=== PATIENT | female | born 1975 | race Caucasian/White ===

== ENCOUNTER 2017-06-22 23:24 | Observation (INO) ==
[2017-06-22 23:53] LABS: Basophils # 0.1 K/mcL (0.0-0.2); Basophils % 0.8 %; Eosinophils # 0.1 K/mcL (0.0-0.6); Eosinophils % 2.2 %; Hematocrit 42.3 % (35.3-44.9); Hemoglobin 14.8 g/dL (11.5-15.4); Immature Granulocytes % 0.8 % (0-4); Lymphocytes # 1.8 K/mcL (0.6-4.6); Lymphocytes % 29.5 %; Mean Corpuscular Hemoglobin 32.4 pg (28.0-33.3); Mean Corpuscular Volume 92.6 fL (83.0-100.0); Mean Platelet Volume 9.1 fL (9.4-12.4); Monocytes # 0.6 K/mcL (0.0-1.3); Monocytes % 9.3 %; Neutrophils # 3.5 K/mcL (1.6-8.9); Platelet Count 247 K/mcL (140-400); Red Blood Count 4.57 M/mcL (3.82-4.97); Red Cell Distribution Width 12.7 % (11.5-14.5); Segmented Neutrophils % 57.4 %
[2017-06-22 23:57] LABS: INR 1.1; Prothrombin Time 11.7 Seconds (9.4-12.1)
[2017-06-23] LABS: Activated Partial Thrombo Time 35.6 Seconds (26.0-36.0)
[2017-06-23 00:07] LABS: Albumin 3.6 g/dL (3.5-5.0); Albumin/Globulin Ratio 1.2 (1.1-2.2); Alkaline Phosphatase 60 Units/L (38-126); Amylase 37 Units/L (25-125); Aspartate Amino Transferase 11 Units/L (5-34); BUN/Creatinine Ratio 21 (6-26); Bilirubin,Direct 0.1 mg/dL (0.0-0.5); Bilirubin,Indirect 0.2 mg/dL (0.0-1.2); Bilirubin,Total 0.3 mg/dL (0.2-1.2); Blood Urea Nitrogen 13 mg/dL (7-20); Calcium 9.3 mg/dL (8.6-10.8); Carbon Dioxide 21 mEq/L (19-29); Chloride 107 mEq/L (98-109); Globulin 3.1 g/dL (2.4-3.5); Glucose 93 mg/dL (70-99); Lipase 37 Units/L (8-78); Osmolality,Calculated 284 (280-300); Potassium 4.1 mEq/L (3.5-4.5); Sodium 137 mEq/L (136-145); Total Protein 6.7 g/dL (6.0-8.3); eGFR For African Americans > 60 (> 60); eGFR For Non-African Americans > 60 (> 60)
[2017-06-23 00:10] LABS: Alanine Aminotransferase < 6 Units/L (0-55)
[2017-06-23] MEDS ORDERED: 0.9 % Sodium Chloride 1,000 ML IVC ONE (00:21)
[2017-06-23] MEDS ORDERED: *HR* FentaNYL (PF) 100 MCG/2 ML VIAL IVP ONE ×2 (00:21→03:54)
[2017-06-23] MEDS ORDERED: Ondansetron 4 MG/2 ML VIAL IVP ONE (00:21)
--- NOTE | 2017-06-23 00:38 | Emergency Department Note ---
Disposition Clinical Impression: GI bleed Qualifiers: GI bleed type/associated pathology: unspecified gastrointestinal hemorrhage type Qualified Code(s): K92.2 - Gastrointestinal hemorrhage, unspecified Abdominal pain Qualifiers: Abdominal location: generalized Qualified Code(s): R10.84 - Generalized abdominal pain Disposition: Admitted As Inpatient Condition: Fair Referrals: NONE,PCP [Non-Partnered Physician] - Forms: ED Satisfaction Letter, Work/School Release Time of Disposition: 04:55 Abdominal Pain HPI - General Chief Complaint: ED Abdominal Pain Stated Complaint: Belly Pain/Vomiting Blood Time Seen by Provider: 06/22/17 23:27 Source: patient, EMS Mode of arrival: ambulatory Limitations: no limitations Nursing Notes Reviewed: Yes Vital Signs Reviewed: Yes - History of Present Illness HPI Narrative: Nontoxic-appearing 41-year-old female presents for evaluation of diffuse abdominal pain, nausea, vomiting blood, and bright red bloody stools. Symptoms began one week ago and have gradually worsened. She was recently sent reevaluated by her primary care provider for this, who started her on Prilosec after obtaining a outpatient stool sample that was positive for guaiac blood. He denies any fever, chills, constipation, diarrhea, or urinary symptoms. She denies any chest pain or shortness of breath. Pt Subjective Complaint: abdominal pain, other ("Bloody stools, vomiting blood") Onset (ago): week(s) (One week) Consistency: Worsening Location: diffuse Pain Severity: severe Pain Scale: 10 Quality: sharp Radiation: none Migration to: no migration Improves with: nothing Worsens with: eating Associated symptoms: Reports: nausea, vomiting, hematemesis, hematochezia. Denies: hematuria Treatments prior to arrival: other (Prilosec per primary care provider) - Related Data Previous Rx's Medication Instructions Recorded Dicyclomine [Bentyl] 10 mg PO TID #20 capsule 03/22/17 Ondansetron HCl [Zofran] 4 mg PO Q8HR #20 tablet 03/22/17 Nitrofurantoin (BID) [Macrobid] 100 mg PO BID #14 capsule 04/17/17 Ciprofloxacin [Cipro] 500 mg PO BID #14 tablet 05/22/17 Allergies Allergy/AdvReac Type Severity Reaction Status Date / Time acetaminophen Allergy Confusion Verified 06/22/17 23:26 [From Darvocet-N] cephalexin [From Keflex] Allergy Rash Verified 06/22/17 23:26 Penicillins Allergy Hives Verified 06/22/17 23:26 propoxyphene Allergy Confusion Verified 06/22/17 23:26 [From Darvocet-N] Sulfa (Sulfonamide Allergy Hives Verified 06/22/17 23:26 Antibiotics) All systems ED: reviewed and negative except as stated. Constitutional: Denies: fever, chills, weakness, weight change Eyes: Denies: eye pain, eye discharge, vision change ENT ED: Denies: ear pain, throat pain, dental pain, hearing loss, epistaxis, congestion, dysphagia Cardiovascular: Denies: chest pain, palpitations, dyspnea on exertion, edema, syncope Respiratory: Denies: cough, dyspnea, wheezes, hemoptysis, stridor Gastrointestinal: Reports: as per HPI, abdominal pain, nausea, vomiting, hematemesis, hematochezia. Denies: diarrhea, constipation, melena Genitourinary: Denies: dysuria, frequency, hematuria, discharge Musculoskeletal: Denies: back pain, neck pain, arthralgia, myalgia Integumentary: Denies: rash, abrasion, lesions Neurological: Denies: headache, weakness, numbness, paresthesias, confusion, abnormal gait, vertigo Psychiatric: Denies: anxiety, depression, suicidal thoughts, homicidal thoughts , auditory hallucinations, visual hallucinations Endocrine: Denies: fatigue Hematological/Lymphatic: Denies: easy bleeding, easy bruising Allergic/Immunologic: Denies: facial swelling, urticaria Abdominal Pain PMH - Past Medical History Medical history: Reports: cancer, seizures Female Surgical History: Reports: breast surgery, , cancer surgery 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 Absent: nystagmus - ENT ENT exam: mucous membranes moist - Neck Neck exam: Present: normal inspection, full ROM, trachea midline - Chest Chest inspection: Present: normal inspection, symmetric chest wall rise - Respiratory Respiratory exam: Present: normal lung sounds bilaterally. Absent: respiratory distress, wheezes, stridor, accessory muscle use, prolonged expiratory phase - Cardiovascular Cardiovascular exam: Present: regular rate, normal rhythm, normal heart sounds - Abdominal Exam Abdominal exam: Present: soft, tenderness, normal bowel sounds. Absent: distention, guarding, rigidity - Rectal Exam Garment Looper present during exam: Yes (Adeel, RN) Rectal exam: Present: normal rectal tone, heme (+) stool. Absent: fecal impaction, hemorrhoids, mass, tenderness - Extremities Exam Extremities exam: Present: normal inspection, full ROM. Absent: tenderness, pedal edema - Neurological Exam Neurological exam: Present: alert, oriented X3 - Psychiatric Psychiatric exam: Present: normal affect, normal mood - Skin Skin exam: Present: warm, dry, intact, normal color Course Course Narrative: I have discussed this patient's case with Dr. Joe. Dr. Joe has had a [id number] evaluation with this patient. 0450: I spoke with Dr. Aleman of the hospitalist service who has accepted the patient for admission to her service. Vital Signs Temperature 98.1 F 06/22/17 23:32 Pulse Rate 72 06/22/17 23:32 Respiratory Rate 18 06/22/17 23:32 Blood Pressure 117/67 06/22/17 23:32 O2 Sat by Pulse Oximetry 98 06/22/17 23:32 Temperature 98.1 F 06/22/17 23:32 Pulse Rate 71 06/23/17 03:50 Respiratory Rate 16 06/23/17 03:50 Blood Pressure 97/52 06/23/17 03:50 O2 Sat by Pulse Oximetry 98 06/23/17 03:50 Oxygen Delivery Oxygen Delivery Room Air Abdominal Pain - Medical Records Medical records reviewed: Yes I reviewed the patient's medical records. - Lab Data Lab results reviewed: Yes I reviewed the patient's lab results. Lab results narrative: Laboratory Last Values WBC 6.0 K/mcL (4.3-11.1) 06/22/17 23:44 RBC 4.57 M/mcL (3.82-4.97) 06/22/17 23:44 Hgb 14.8 g/dL (11.5-15.4) D 06/22/17 23:44 Hct 42.3 % (35.3-44.9) 06/22/17 23:44 MCV 92.6 fL (83.0-100.0) 06/22/17 23:44 MCH 32.4 pg (28.0-33.3) 06/22/17 23:44 MCHC 35.0 g/dL (31.6-35.5) 06/22/17 23:44 RDW 12.7 % (11.5-14.5) 06/22/17 23:44 Plt Count 247 K/mcL (140-400) 06/22/17 23:44 MPV 9.1 fL (9.4-12.4) L 06/22/17 23:44 Immature Gran % 0.8 % (0-4) 06/22/17 23:44 Seg Neutrophils % 57.4 % 06/22/17 23:44 Lymphocytes % 29.5 % 06/22/17 23:44 Monocytes % 9.3 % 06/22/17 23:44 Eosinophils % 2.2 % 06/22/17 23:44 Basophils % 0.8 % 06/22/17 23:44 Neutrophils # 3.5 K/mcL (1.6-8.9) 06/22/17 23:44 Lymphocytes # 1.8 K/mcL (0.6-4.6) 06/22/17 23:44 Monocytes # 0.6 K/mcL (0.0-1.3) 06/22/17 23:44 Eosinophils # 0.1 K/mcL (0.0-0.6) 06/22/17 23:44 Basophils # 0.1 K/mcL (0.0-0.2) 06/22/17 23:44 PT 11.7 Seconds (9.4-12.1) 06/22/17 23:44 INR 1.1 06/22/17 23:44 APTT 35.6 Seconds (26.0-36.0) 06/22/17 23:44 Sodium 137 mEq/L (136-145) 06/22/17 23:44 Potassium 4.1 mEq/L (3.5-4.5) 06/22/17 23:44 Chloride 107 mEq/L (98-109) 06/22/17 23:44 Carbon Dioxide 21 mEq/L (19-29) 06/22/17 23:44 BUN 13 mg/dL (7-20) 06/22/17 23:44 Creatinine 0.63 mg/dL (0.57-1.11) 06/22/17 23:44 Est GFR ( Amer) > 60 (> 60) 06/22/17 23:44 Est GFR (Non-Af Amer) > 60 (> 60) 06/22/17 23:44 BUN/Creatinine Ratio 21 (6-26) 06/22/17 23:44 Glucose 93 mg/dL (70-99) 06/22/17 23:44 Calculated Osmolality 284 (280-300) 06/22/17 23:44 Lactic Acid 0.7 mmol/L (0.5-2.2) 06/22/17 23:44 Calcium 9.3 mg/dL (8.6-10.8) 06/22/17 23:44 Total Bilirubin 0.3 mg/dL (0.2-1.2) 06/22/17 23:44 Direct Bilirubin 0.1 mg/dL (0.0-0.5) 06/22/17 23:44 Indirect Bilirubin 0.2 mg/dL (0.0-1.2) 06/22/17 23:44 AST 11 Units/L (5-34) 06/22/17 23:44 ALT < 6 Units/L (0-55) 06/22/17 23:44 Alkaline Phosphatase 60 Units/L (38-126) 06/22/17 23:44 Serum Total Protein 6.7 g/dL (6.0-8.3) 06/22/17 23:44 Albumin 3.6 g/dL (3.5-5.0) 06/22/17 23:44 Globulin 3.1 g/dL (2.4-3.5) 06/22/17 23:44 Albumin/Globulin Ratio 1.2 (1.1-2.2) 06/22/17 23:44 Amylase 37 Units/L (25-125) 06/22/17 23:44 Lipase 37 Units/L (8-78) 06/22/17 23:44 Urine Color Yellow (Yellow) 06/23/17 01:18 Urine Clarity Clear (Clear) 06/23/17 01:18 Urine pH 6.0 pH Units (5.0-8.0) 06/23/17 01:18 Ur Specific [place] > 1.030 (1.010-1.025) H 06/23/17 01:18 Urine Protein Negative mg/dL (Neg-Trace) 06/23/17 01:18 Urine Glucose (UA) Normal mg/dL (Normal) 06/23/17 01:18 Urine Ketones Negative mg/dL (Negative) 06/23/17 01:18 Urine Blood Negative (Negative) 06/23/17 01:18 Urine Nitrite Negative (Negative) 06/23/17 01:18 Urine Bilirubin Negative (Negative) 06/23/17 01:18 Urine Urobilinogen Normal mg/dL (Normal) 06/23/17 01:18 Ur Leukocyte Esterase Small (Negative) H 06/23/17 01:18 Urine Microscopic RBC 0-3 per hpf (0-3) 06/23/17 01:18 Urine Microscopic WBC 5-15 per hpf (0-3) H 06/23/17 01:18 Ur Squamous Epith Cells Many per lpf (None-Few) H 06/23/17 01:18 Urine Bacteria None Seen per hpf (None-Few) 06/23/17 01:18 Hyaline Casts None Seen per lpf (None-Few) 06/23/17 01:18 Ur Culture Indicated? YES (NO) A 06/23/17 01:18 Urine Test Negative (Negative) 06/23/17 01:18 Result diagrams: 06/22/17 23:44 06/22/17 23:44 Lab Results 06/22/17 06/22/17 06/22/17 Range/Units 23:44 23:44 23:44 WBC 6.0 (4.3-11.1) K/mcL RBC 4.57 (3.82-4.97) M/mcL Hgb 14.8 D (11.5-15.4) g/dL Hct 42.3 (35.3-44.9) % MCV 92.6 (83.0-100.0) fL MCH 32.4 (28.0-33.3) pg MCHC 35.0 (31.6-35.5) g/dL RDW 12.7 (11.5-14.5) % Plt Count 247 (140-400) K/mcL MPV 9.1 L (9.4-12.4) fL Immature Gran % 0.8 (0-4) % Seg Neutrophils % 57.4 % Lymphocytes % 29.5 % Monocytes % 9.3 % Eosinophils % 2.2 % Basophils % 0.8 % Neutrophils # 3.5 (1.6-8.9) K/mcL Lymphocytes # 1.8 (0.6-4.6) K/mcL Monocytes # 0.6 (0.0-1.3) K/mcL Eosinophils # 0.1 (0.0-0.6) K/mcL Basophils # 0.1 (0.0-0.2) K/mcL PT 11.7 (9.4-12.1) Seconds INR 1.1 APTT 35.6 (26.0-36.0) Seconds Sodium 137 (136-145) mEq/L Potassium 4.1 (3.5-4.5) mEq/L Chloride 107 (98-109) mEq/L Carbon Dioxide 21 (19-29) mEq/L BUN 13 (7-20) mg/dL Creatinine 0.63 (0.57-1.11) mg/dL Est GFR ( Amer) > 60 (> 60) Est GFR (Non-Af Amer) > 60 (> 60) BUN/Creatinine Ratio 21 (6-26) Glucose 93 (70-99) mg/dL Calculated Osmolality 284 (280-300) Lactic Acid (0.5-2.2) mmol/L Calcium 9.3 (8.6-10.8) mg/dL Total Bilirubin 0.3 (0.2-1.2) mg/dL Direct Bilirubin 0.1 (0.0-0.5) mg/dL Indirect Bilirubin 0.2 (0.0-1.2) mg/dL AST 11 (5-34) Units/L ALT < 6 (0-55) Units/L Alkaline Phosphatase 60 (38-126) Units/L Serum Total Protein 6.7 (6.0-8.3) g/dL Albumin 3.6 (3.5-5.0) g/dL Globulin 3.1 (2.4-3.5) g/dL Albumin/Globulin Ratio 1.2 (1.1-2.2) Amylase 37 (25-125) Units/L Lipase 37 (8-78) Units/L Urine Color (Yellow) Urine Clarity (Clear) Urine pH (5.0-8.0) pH Units Ur Specific [place] (1.010-1.025) Urine Protein (Neg-Trace) mg/dL Urine Glucose (UA) (Normal) mg/dL Urine Ketones (Negative) mg/dL Urine Blood (Negative) Urine Nitrite (Negative) Urine Bilirubin (Negative) Urine Urobilinogen (Normal) mg/dL Ur Leukocyte Esterase (Negative) Urine Microscopic RBC (0-3) per hpf Urine Microscopic WBC (0-3) per hpf Ur Squamous Epith Cells (None-Few) per lpf Urine Bacteria (None-Few) per hpf Hyaline Casts (None-Few) per lpf Ur Culture Indicated? (NO) Urine Test (Negative) 06/22/17 06/23/17 06/23/17 Range/Units 23:44 01:18 01:18 WBC (4.3-11.1) K/mcL RBC (3.82-4.97) M/mcL Hgb (11.5-15.4) g/dL Hct (35.3-44.9) % MCV (83.0-100.0) fL MCH (28.0-33.3) pg MCHC (31.6-35.5) g/dL RDW (11.5-14.5) % Plt Count (140-400) K/mcL MPV (9.4-12.4) fL Immature Gran % (0-4) % Seg Neutrophils % % Lymphocytes % % Monocytes % % Eosinophils % % Basophils % % Neutrophils # (1.6-8.9) K/mcL Lymphocytes # (0.6-4.6) K/mcL Monocytes # (0.0-1.3) K/mcL Eosinophils # (0.0-0.6) K/mcL Basophils # (0.0-0.2) K/mcL PT (9.4-12.1) Seconds INR APTT (26.0-36.0) Seconds Sodium (136-145) mEq/L Potassium (3.5-4.5) mEq/L Chloride (98-109) mEq/L Carbon Dioxide (19-29) mEq/L BUN (7-20) mg/dL Creatinine (0.57-1.11) mg/dL Est GFR ( Amer) (> 60) Est GFR (Non-Af Amer) (> 60) BUN/Creatinine Ratio (6-26) Glucose (70-99) mg/dL Calculated Osmolality (280-300) Lactic Acid 0.7 (0.5-2.2) mmol/L Calcium (8.6-10.8) mg/dL Total Bilirubin (0.2-1.2) mg/dL Direct Bilirubin (0.0-0.5) mg/dL Indirect Bilirubin (0.0-1.2) mg/dL AST (5-34) Units/L ALT (0-55) Units/L Alkaline Phosphatase (38-126) Units/L Serum Total Protein (6.0-8.3) g/dL Albumin (3.5-5.0) g/dL Globulin (2.4-3.5) g/dL Albumin/Globulin Ratio (1.1-2.2) Amylase (25-125) Units/L Lipase (8-78) Units/L Urine Color Yellow (Yellow) Urine Clarity Clear (Clear) Urine pH 6.0 (5.0-8.0) pH Units Ur Specific [place] > 1.030 H (1.010-1.025) Urine Protein Negative (Neg-Trace) mg/dL Urine Glucose (UA) Normal (Normal) mg/dL Urine Ketones Negative (Negative) mg/dL Urine Blood Negative (Negative) Urine Nitrite Negative (Negative) Urine Bilirubin Negative (Negative) Urine Urobilinogen Normal (Normal) mg/dL Ur Leukocyte Esterase Small H (Negative) Urine Microscopic RBC 0-3 (0-3) per hpf Urine Microscopic WBC 5-15 H (0-3) per hpf Ur Squamous Epith Cells Many H (None-Few) per lpf Urine Bacteria None Seen (None-Few) per hpf Hyaline Casts None Seen (None-Few) per lpf Ur Culture Indicated? YES A (NO) Urine Test Negative (Negative) - Radiology Data Radiology results reviewed: Yes I reviewed the patient's radiology results. Abdomen/Pelvis CT 06/23/17 00:22 IMPRESSION: Stable CT examination of the abdomen pelvis with no evidence for acute process and few incidental/chronic findings as described. D/ / Rickey Pate MD / Rickey Pate MD Interpreting Provider: Rickey Pate MD
[2017-06-23] MEDS ORDERED: Pantoprazole 40 MG in 0.9 % Sodium Chloride Mini Bag 100 ML IVC SCH (01:15)
[2017-06-23 02:04] LABS: Bilirubin,Urine Negative (Negative); Blood,Urine Negative (Negative); Clarity,Urine Clear (Clear); Color,Urine Yellow (Yellow); Glucose,Urine (UA) Normal (Normal); Ketones,Urine Negative (Negative); Leukocyte Esterase,Urine Small (Negative); Nitrite,Urine Negative (Negative); Protein,Urine Negative (Neg-Trace); Specific Gravity,Urine > 1.030 (1.010-1.025); Urobilinogen,Urine Normal (Normal)
[2017-06-23 02:06] LABS: Bacteria,Urine None Seen per hpf (None-Few); RBC,Urine 0-3 per hpf (0-3); Squamous Epithelial Cell,Urine Many per lpf (None-Few)
[2017-06-23 02:15] LABS: Hyaline Casts,Urine None Seen per lpf (None-Few)
[2017-06-23 05:34] VITALS: BP 97/63
== END 2017-06-23 06:46 | disposition left against medical advice (07) ==
LOC: 3ANU 23:24 → EMEROO 23:24 → 3ANU 06-23 06:08
PROVIDERS: ADMIT Internal Medicine; ATTEND Internal Medicine